=== PATIENT | male | born 1995 ===

== ENCOUNTER 2017-08-13 03:34 | Emergency (ER) | payer OTHER ==
[2017-08-13 03:44] VITALS: BP 134/90; PULSE 78; RESP 18; TEMP 97.7; O2SAT 95
[2017-08-13] MEDS ORDERED: Promethazine/Cod 6.25mg-10mg/5ml Syr UD PO STA (04:20)
[2017-08-13] MEDS ORDERED: Albuterol-Ipratrop 3 mg / 0.5 (3 ml) UD INH STA ×2 (04:20)
[2017-08-13] MEDS ORDERED: Promethazine/Cod 6.25mg-10mg/5ml Syr UD ONE (04:28)
[2017-08-13] MEDS ORDERED: Albuterol-Ipratrop 3 mg / 0.5 (3 ml) UD ONE (04:29)
--- NOTE | 2017-08-13 05:05 | ED PDOC ---
HPI: CCC, URI, Sore Throat Time Seen by Provider: 08/13/17 03:50 Chief Complaint (Nursing): Cough, Cold, Congestion Chief Complaint (Provider): Cough History Per: Patient History/Exam Limitations: no limitations Onset/Duration Of Symptoms: Days (3) Current Symptoms Are (Timing): Still Present Sick Contacts (Context): None Associated Symptoms: Cough, Other (+ wheezing). denies: Fever, Chills, Sore Throat, Sputum, Neck Pain, Sinus Drainage, Myalgias, Nasal Congestion, Nausea, Vomiting, Diarrhea Additional History Per: Patient Additional Complaint(s): 21 y/o male with hx asthma here this morning complaining of worsening nonproductive cough x3 days, and worsening wheezing and chest tightness. Patient has been using his MDI at home. Tonight, he was unable to sleep due to cough, which prompted him to come here. Past Medical History Vital Signs: Last Vital Signs Temp 97.7 F 08/13/17 03:41 Pulse 78 08/13/17 03:41 Resp 18 08/13/17 03:41 BP 134/90 08/13/17 03:41 Pulse Ox 95 08/13/17 05:23 - Medical History PMH: Asthma - Surgical History Surgical History: No Surg Hx - Family History Family History: States: Unknown Family Hx - Social History Current smoker - smoking cessation education provided: No Alcohol: None Drugs: Denies - Home Medications Home Medications: Ambulatory Orders Medication Instructions Recorded Montelukast [Singulair] 1 tab PO DAILY 12/20/15 Cetirizine HCl [Zyrtec] 1 tab PO HS 08/31/16 Albuterol 0.5% [Albuterol 0.5% 2.5 mg IH Q6 PRN #1 packet 08/13/17 Inhal Sabina (2.5 mg/0.5 ml) UD] Albuterol HFA [Ventolin HFA 90 1 - 2 puff IH Q6 PRN #1 inhaler 08/13/17 mcg/actuation (8 g)] Benzonatate [Tessalon Perle] 100 mg PO TID PRN #15 capsule 08/13/17 Nebulizer [Compact Compressor 1 dev XX PRN PRN #1 dev 08/13/17 Nebulizer] predniSONE [predniSONE Tab] 60 mg PO QAM #12 tab 08/13/17 - Allergies Allergies/Adverse Reactions: Allergies Allergy/AdvReac Type Severity Reaction Status Date / Time EGG Allergy RASH Verified 08/31/16 21:30 shrimp Allergy ANGIOEDEMA Verified 08/13/17 03:42 Review of Systems ROS Statement: Except As Marked, All Systems Reviewed And Found Negative Respiratory: Positive for: Cough, Wheezing Physical Exam - Reviewed Nursing Documentation Reviewed: Yes Vital Signs Reviewed: Yes - Physical Exam Appears: Positive for: Well, Non-toxic, No Acute Distress Head Exam: Positive for: ATRAUMATIC, NORMAL INSPECTION, NORMOCEPHALIC Skin: Positive for: Normal Color, Warm, DRY Eye Exam: Positive for: EOMI, Normal appearance, PERRL ENT: Positive for: Normal ENT Inspection Neck: Positive for: Normal, Painless ROM Cardiovascular/Chest: Positive for: Regular Rate, Rhythm Respiratory: Positive for: Wheezing (diffuse, expiratory), Respiratory Distress. Negative for: Normal Breath Sounds, Crackles, Rales, Rhonchi, Stridor Gastrointestinal/Abdominal: Positive for: Normal Exam, Bowel Sounds, Soft Back: Positive for: Normal Inspection Extremity: Positive for: Normal ROM Neurologic/Psych: Positive for: Alert, Oriented - ECG O2 Sat by Pulse Oximetry: 95 (RA) Pulse Ox Interpretation: Normal Medical Decision Making Medical Decision Making: Impression: 21 y/o male with acute asthma exacerbation Plan: - Duo Neb x2 - Prednisone - Promethazine with Codeine On reevaluation the patient has improved and is comfortable going home. He is medically stable. All questions answered. Patient discharged. Scribe Attestation Documented by Di Sanabria acting as a scribe for Jose Wellington MD. Provider Attestation All medical record entries made by the Scribe were at my direction and personally dictated by me. I have reviewed the chart and agree that the record accurately reflects my personal performance of the history, physical exam, medical decision making, and the department course for this patient. I have also personally directed, reviewed, and agree with the discharge instructions and disposition. Disposition - Clinical Impression Clinical Impression: Asthma exacerbation - Patient ED Disposition Is Patient to be Admitted: No Doctor Will See Patient In The: Office Counseled Patient/Family Regarding: Diagnosis, Need For Followup - Disposition Disposition: Routine/Home Disposition Time: 05:23 Condition: STABLE Prescriptions: Albuterol 0.5% [Albuterol 0.5% Inhal Sabina (2.5 mg/0.5 ml) UD] 2.5 mg IH Q6 PRN # 1 packet PRN Reason: Shortness Of Breath Albuterol HFA [Ventolin HFA 90 mcg/actuation (8 g)] 1 - 2 puff IH Q6 PRN #1 inhaler PRN Reason: Shortness Of Breath, Wheezing Benzonatate [Tessalon Perle] 100 mg PO TID PRN #15 capsule PRN Reason: Cough Nebulizer [Compact Compressor Nebulizer] 1 dev XX PRN PRN #1 dev PRN Reason: Shortness Of Breath predniSONE [predniSONE Tab] 60 mg PO QAM #12 tab Instructions: Asthma in Adults Forms: [facility] (Monegasque)
== END 2017-08-13 04:24 | disposition home or self-care (01) ==
LOC: H.ER 03:34
DX: J45.901 Unspecified asthma with (acute) exacerbation (principal)

== ENCOUNTER 2017-10-08 17:31 | Emergency (ER) | payer OTHER ==
[2017-10-08 17:39] VITALS: BMI 29.0
[2017-10-08] MEDS ORDERED: Albuterol-Ipratrop 3 mg / 0.5 (3 ml) UD IH STA ×3 (17:51→17:52)
[2017-10-08 18:02] VITALS: RESP 26
--- NOTE | 2017-10-08 18:43 | ED PDOC ---
HPI: SOB/CHF/COPD Time Seen by Provider: 10/08/17 17:47 Chief Complaint (Nursing): Shortness Of Breath Additional Complaint(s): 22 y/o M c PMHx cough and dyspnea similar to previous asthma exacerbations x 4 days. Patient reports small amount of sputum. Denies fever, chest pain, vomiting , leg swelling. Never intubated or admitted. Past Medical History Vital Signs: Last Vital Signs Temp Pulse Resp 26 H 10/08/17 18:01 BP Pulse Ox - Medical History PMH: Asthma - Family History Family History: States: Unknown Family Hx - Home Medications Home Medications: Ambulatory Orders Medication Instructions Recorded Montelukast [Singulair] 1 tab PO DAILY 12/20/15 Cetirizine HCl [Zyrtec] 1 tab PO HS 08/31/16 Albuterol 0.5% [Albuterol 0.5% 2.5 mg IH Q6 PRN #1 packet 08/13/17 Inhal Sabina (2.5 mg/0.5 ml) UD] Albuterol HFA [Ventolin HFA 90 1 - 2 puff IH Q6 PRN #1 inhaler 08/13/17 mcg/actuation (8 g)] Benzonatate [Tessalon Perle] 100 mg PO TID PRN #15 capsule 08/13/17 Nebulizer [Compact Compressor 1 dev XX PRN PRN #1 dev 08/13/17 Nebulizer] predniSONE [predniSONE Tab] 60 mg PO QAM #12 tab 08/13/17 Albuterol 0.083% [Albuterol 3 ml IH Q4 #150 neb 10/08/17 Sulfate 3 Ml] Albuterol HFA [Ventolin HFA 90 2 puff IH Q6 #1 inhaler 10/08/17 mcg/actuation (8 g)] Benzonatate [Tessalon Perles] 200 mg PO TID #30 sgl 10/08/17 Prednisone [Deltasone] 3 tab PO DAILY #12 tablet 10/08/17 - Allergies Allergies/Adverse Reactions: Allergies Allergy/AdvReac Type Severity Reaction Status Date / Time EGG Allergy RASH Verified 08/31/16 21:30 shrimp Allergy ANGIOEDEMA Verified 08/13/17 03:42 Review of Systems ROS Statement: Except As Marked, All Systems Reviewed And Found Negative Constitutional: Negative for: Fever Gastrointestinal: Negative for: Vomiting Physical Exam - Physical Exam Comments: Gen: NAD Head: NC Eyes: No icterus ENT: MMM Neck: Supple Chest: no retractions CV: regular rate Lungs: Wheezing diffusely Abd: Soft, NT Ext: No swelling Neuro: Alert, no focal deficit Skin: No rash Medical Decision Making Medical Decision Makin duonebs and steroids, patient feels better, wheezing much improved, good air movement. CXR no consolidation or infiltrate. Patient feels comfortable to go home. Instructed to return for worsening breathing, requiring albuterol more than every 4 hours. Disposition - Clinical Impression Clinical Impression: Asthma exacerbation - Patient ED Disposition Is Patient to be Admitted: No - Disposition Disposition: Routine/Home Disposition Time: 18:41 Condition: STABLE Prescriptions: Albuterol 0.083% [Albuterol Sulfate 3 Ml] 3 ml IH Q4 #150 neb Albuterol HFA [Ventolin HFA 90 mcg/actuation (8 g)] 2 puff IH Q6 #1 inhaler Benzonatate [Tessalon Perles] 200 mg PO TID #30 sgl Prednisone [Deltasone] 3 tab PO DAILY #12 tablet Instructions: Asthma in Adults
--- NOTE | 2017-10-09 07:34 | RAD ---
HISTORY: cough COMPARISON: Chest radiographs 12/20/2015. TECHNIQUE: Chest PA and lateral FINDINGS: LUNGS: No active pulmonary disease. PLEURA: No significant pleural effusion identified. No pneumothorax apparent. CARDIOVASCULAR: Normal. OSSEOUS STRUCTURES: No significant abnormalities. VISUALIZED UPPER ABDOMEN: Normal. OTHER FINDINGS: None. IMPRESSION: No interval acute cardiopulmonary disease appreciated.
== END 2017-10-08 19:00 | disposition short-term general hospital (02) ==
LOC: H.ER 17:31
DX: J45.901 Unspecified asthma with (acute) exacerbation (principal)

== ENCOUNTER 2017-10-09 02:36 | Observation (INO) | payer OTHER, SELFPAY ==
[2017-10-09 02:36] VITALS: BMI 29.0
[2017-10-09] MEDS ORDERED: Magnesium Sulfate 2 GM in Sodium Chloride 0.9% 100 ML IV STA (03:10)
[2017-10-09] MEDS ORDERED: Albuterol-Ipratrop 3 mg / 0.5 (3 ml) UD INH STA (03:10)
--- NOTE | 2017-10-09 03:16 | ED PDOC ---
HPI: SOB/CHF/COPD Time Seen by Provider: 10/09/17 02:49 Chief Complaint (Nursing): Shortness Of Breath Chief Complaint (Provider): Shortness of Breath History Per: Patient History/Exam Limitations: no limitations Onset/Duration Of Symptoms: Hrs (x24) Current Symptoms Are (Timing): Still Present Initiating Event: Upper Respiratory Illness Current Respiratory Medications: See Home Med List Associated Symptoms: Fever Recently: Seen In ED Additional Complaint(s): 22 year old male presents to ED with complaints of SOB x24 hours and has a past medical history of asthma. Patient was seen in ED yesterday for the same complaint and was treated with duonebs and prednisone prior to discharge. Patient states he was unable to fill his prescriptions and that his symptoms became very acute within the last few hours, prompting ED arrival. Patient notes using nebulizer with no improvement. (+) rhinorrhea, cough, and fever. PCP: None Past Medical History Reviewed: Historical Data, Nursing Documentation, Vital Signs Vital Signs: Last Vital Signs Temp 99.5 F 10/09/17 02:41 Pulse 112 H 10/09/17 03:26 Resp 20 10/09/17 02:41 BP 146/82 10/09/17 02:41 Pulse Ox 92 L 10/09/17 03:26 - Medical History PMH: Asthma - Surgical History Surgical History: No Surg Hx - Family History Family History: States: Unknown Family Hx - Social History Current smoker - smoking cessation education provided: No - Home Medications Home Medications: Ambulatory Orders Medication Instructions Recorded Montelukast [Singulair] 1 tab PO DAILY 12/20/15 Cetirizine HCl [Zyrtec] 1 tab PO HS 08/31/16 Albuterol 0.5% [Albuterol 0.5% 2.5 mg IH Q6 PRN #1 packet 08/13/17 Inhal Sabina (2.5 mg/0.5 ml) UD] Albuterol HFA [Ventolin HFA 90 1 - 2 puff IH Q6 PRN #1 inhaler 08/13/17 mcg/actuation (8 g)] Benzonatate [Tessalon Perle] 100 mg PO TID PRN #15 capsule 08/13/17 Nebulizer [Compact Compressor 1 dev XX PRN PRN #1 dev 08/13/17 Nebulizer] predniSONE [predniSONE Tab] 60 mg PO QAM #12 tab 08/13/17 Albuterol 0.083% [Albuterol 3 ml IH Q4 #150 neb 10/08/17 Sulfate 3 Ml] Albuterol HFA [Ventolin HFA 90 2 puff IH Q6 #1 inhaler 10/08/17 mcg/actuation (8 g)] Benzonatate [Tessalon Perles] 200 mg PO TID #30 sgl 10/08/17 Prednisone [Deltasone] 3 tab PO DAILY #12 tablet 10/08/17 Montelukast [Singulair] 10 mg PO QAM #14 tab 10/09/17 - Allergies Allergies/Adverse Reactions: Allergies Allergy/AdvReac Type Severity Reaction Status Date / Time EGG Allergy RASH Verified 08/31/16 21:30 shrimp Allergy ANGIOEDEMA Verified 08/13/17 03:42 Curb-65 Severity Score - CURB-65 Severity Score Confusion: No Respiratory Rate greater than/equal to 30: No Systolic BP <90 or Diastolic BP less than/equal 60mmHg: No Age >64: No Curb-65 Score: 0 Percentage 30-day mortality: 0.6% Wells Criteria for PE - Wells Criteria for Pulmonary Embolism Clinical Signs and Symptoms of DVT: No P.E is #1 Diagnosis, or Equally Likely: No Heart Rate >100: Yes Immobilization at least 3 days;Surgery previous 4 weeks: No Previous, objectively diagnosed PE or DVT: No Malignancy w/treatment within 6 months, or palliative: No Total Score: 1.5 Review of Systems ROS Statement: Except As Marked, All Systems Reviewed And Found Negative Constitutional: Positive for: Fever ENT: Positive for: Nose Discharge (rhinorrhea) Respiratory: Positive for: Cough, Shortness of Breath Physical Exam - Reviewed Nursing Documentation Reviewed: Yes Vital Signs Reviewed: Yes - Physical Exam Appears: Positive for: Non-toxic Skin: Positive for: Normal Color, Warm, Dry Eye Exam: Positive for: Normal appearance, EOMI, PERRL ENT: Positive for: Normal ENT Inspection Cardiovascular/Chest: Positive for: Regular Rate, Rhythm, Tachycardia Respiratory: Positive for: Decreased Breath Sounds (decreased air entry bilaterally), Rhonchi (expiratory rhonchi diffusely), Wheezing (expiratory wheeze diffusely), Respiratory Distress (mild). Negative for: Normal Breath Sounds Gastrointestinal/Abdominal: Positive for: Normal Exam, Soft. Negative for: Tenderness Extremity: Positive for: Normal ROM. Negative for: Deformity Neurologic/Psych: Positive for: Alert, Oriented. Negative for: Motor/Sensory Deficits - ECG ECG: Positive for: Interpreted By Me, Viewed By Me ECG Rhythm: Positive for: Sinus Tachycardia Rate: 112 (taken at 02:40 10/09/2017) O2 Sat by Pulse Oximetry: 92 (RA) Pulse Ox Interpretation: Abnormal - Critical Care Total Time (In Min): 30 Medical Decision Making Medical Decision Makin Initial impression: acute asthma exacerbation and mild respiratory distress Initial plan: * EKG * Duonebs 9mL INH * Magnesium Sulfate IV * Solumedrol 125mg IVP * Peak flow pre/post Tx * Re-eval 0430 Upon re-evaluation patient reports minimal improvement in symptoms. Discussed case with Dr. Darden who accepts patient under his care (OBS MED/SURG). ~ Scribe Attestation: Documented by Ava Echeverria, acting as a scribe for Jose Wellington MD. Provider Scribe Attestation: All medical record entries made by the Scribe were at my direction and personally dictated by me. I have reviewed the chart and agree that the record accurately reflects my personal performance of the history, physical exam, medical decision making, and the department course for this patient. I have also personally directed, reviewed, and agree with the discharge instructions and disposition. Disposition - Clinical Impression Clinical Impression: Asthma exacerbation - Patient ED Disposition Is Patient to be Admitted: Yes - Disposition Disposition Time: 04:30 Condition: FAIR Prescriptions: Montelukast [Singulair] 10 mg PO QAM #14 tab Instructions: Asthma in Adults Forms: [facility] (French) - Pt Status Changed To: Hospital Disposition Of: Observation (OBS MED/SURG)
[2017-10-09] MEDS ORDERED: Promethazine 12.5 mg/10 ml Syrup PO STA (04:26)
[2017-10-09] MEDS ORDERED: Promethazine 6.25 MG/5 ML CUP ONE (05:10)
--- NOTE | 2017-10-09 05:21 | CP.PCM.HP ---
History of Present Illness - History of Present Illness History of Present Illness: PMD: None Chief complaint: SOB The patient was seen and examined in the ED HPI: 22 years old male with hx of Asthma, has been having daily mild attacks relieved with his Inhaler. He was seen at the ED on 10/08/17 because of SOB and wheezing not responding to his Home medications. He was treated and discharged. He now returns to the ED a few hours later, referring that the severe SOB and wheezing had returned. He referred mild productive cough and Palpitation, No fever nor chest pain. In the ED he received Albuterol Nebulizer , Methylprednisolone and Magnesium with little improvement. PMH: Bronchial Asthma PSH: Denies SH: No illegal drug use; No Cigarettes; Occasional alcohol, Live with family, He smokes [place]ah FH: States: Unknown Family Hx Allergies: NKDA Egg; Shrimp; Dogs; Cats Medication: Reviewed - Present on Admission - Present on Admission Any Indicators Present on Admission: No History of DVT/PE: No History of Uncontrolled Diabetes: No Urinary Catheter: No Decubitus Ulcer Present: No Review of Systems - Constitutional Constitutional: absent: Anorexia, Chills, Fatigue, Fever, Headache - EENT Eyes: absent: Diplopia, Floaters, Requires Corrective Lenses, Sees Flashes Ears: absent: Decreased Hearing, Ear Discharge, Ear Pain, Tinnitus Nose/Mouth/Throat: absent: Epistaxis, Nasal Congestion, Nasal Obstruction, Nasal Trauma - Cardiovascular Cardiovascular: Dyspnea. absent: Chest Pain, Edema - Respiratory Respiratory: Cough, Dyspnea, Wheezing. absent: Stridor - Gastrointestinal Gastrointestinal: absent: Abdominal Pain, Constipation, Diarrhea, Nausea, Vomiting - Genitourinary Genitourinary: absent: Dysuria, Flank Pain, Hematuria, Urinary Frequency - Musculoskeletal Musculoskeletal: absent: Back Pain, Muscle Cramps, Muscle Weakness - Integumentary Integumentary: absent: Pruritus, Rash, Skin Ulcer, Sores, Striae, Swelling - Neurological Neurological: absent: Confusion, Dizziness, Focal Weakness, Weakness - Psychiatric Psychiatric: absent: Anxiety, Confusion, Depression, Irritability, Panic Attacks - Endocrine Endocrine: absent: Palpitations, Polydipsia, Polyphagia, Polyuria - Hematologic/Lymphatic Hematologic: absent: Easy Bleeding, Easy Bruising Past Patient History - Past Social History Smoking Status: Never Smoked Chewing Tobacco Use: No Cigar Use: No Alcohol: Occasional Drugs: Denies Home Situation {Lives}: With Family - CARDIAC Hx Cardiac Disorders: No - PULMONARY Hx Asthma: Yes - NEUROLOGICAL Hx Neurological Disorder: No - HEENT Hx HEENT Problems: No - RENAL Hx Chronic Kidney Disease: No - ENDOCRINE/METABOLIC Hx Endocrine Disorders: No - HEMATOLOGICAL/ONCOLOGICAL Hx Blood Disorders: No - INTEGUMENTARY Hx Dermatological Problems: No - MUSCULOSKELETAL/RHEUMATOLOGICAL Hx Musculoskeletal Disorders: No - GASTROINTESTINAL Hx Gastrointestinal Disorders: No - GENITOURINARY/GYNECOLOGICAL Hx Genitourinary Disorders: No - PSYCHIATRIC Hx Psychophysiologic Disorder: No Hx Substance Use: No - SURGICAL HISTORY Hx Surgeries: No - ANESTHESIA Hx Anesthesia: No Meds Home Medications: Home Medication List Medication Instructions Recorded Confirmed Type Montelukast [Singulair] 10 mg PO QAM #14 tab 10/09/17 Rx Allergies/Adverse Reactions: Allergies Allergy/AdvReac Type Severity Reaction Status Date / Time EGG Allergy RASH Verified 08/31/16 21:30 shrimp Allergy ANGIOEDEMA Verified 08/13/17 03:42 Physical Exam - Constitutional Appears: In Acute Distress - Head Exam Head Exam: ATRAUMATIC, NORMAL INSPECTION, NORMOCEPHALIC - Eye Exam Eye Exam: EOMI, Normal appearance Pupil Exam: NORMAL ACCOMODATION, PERRL - ENT Exam ENT Exam: Mucous Membranes Moist, Normal Exam - Neck Exam Neck exam: Positive for: Full Rom, Normal Inspection. Negative for: Lymphadenopathy, Tenderness - Respiratory Exam Respiratory Exam: Decreased Breath Sounds, Prolonged Expiratory Phase, Rhonchi, Wheezes. absent: Rales - Cardiovascular Exam Cardiovascular Exam: Tachycardia, +S1, +S2. absent: Gallop - GI/Abdominal Exam GI & Abdominal Exam: Normal Bowel Sounds, Soft. absent: Mass, Organomegaly, Tenderness - Rectal Exam Rectal Exam: Deferred - Extremities Exam Extremities exam: Positive for: full ROM, normal inspection. Negative for: calf tenderness, pedal edema, tenderness - Back Exam Back exam: NORMAL INSPECTION. absent: CVA tenderness (L), CVA tenderness (R) - Neurological Exam Neurological exam: Alert, CN II-XII Intact, Oriented x3, Reflexes Normal - Psychiatric Exam Psychiatric exam: Normal Affect, Normal Mood - Skin Skin Exam: Dry, Intact, Normal Color, Warm Results - Vital Signs Recent Vital Signs: Last Vital Signs Temp 98.2 F 10/09/17 04:46 Pulse 121 H 10/09/17 04:46 Resp 24 10/09/17 04:46 BP 134/58 L 10/09/17 04:46 Pulse Ox 93 L 10/09/17 04:46 - Imaging and Cardiology Chest x-ray Status: Image reviewed by me Additional comment: No infiltrate No active disease Assessment & Plan - Assessment and Plan (Free Text) Assessment: #. Asthma Plan: 22 years old male with hx of Asthma, has been having daily mild attacks relieved with his Inhaler. Comes with worsening SOB and wheezing. He was here at the ED a few hours prior for the same,treated and discharged but deteriorated in his breathing at home. #. Status Asthmaticus. The patient received Two treatment of Albuterol, Methylprednisone and Magnesium in the ED withno significant relief. - Consult Dr Armijo vehicle dynamics engineer - Methylprednisolone 60mg IVP Q6h and taper - Albuterol nebulizer Q4H and Q2H prn - Mucinex #. DVT Prophylaxis with Lovenox #. Code Status: Full - Date & Time Date: 10/09/17 Time: 05:21
[2017-10-09] MEDS ORDERED: Albuterol 0.083% Inhal Sol (2.5 mg/3 mL) UD INH PRN (05:39)
[2017-10-09 06:53] LABS: BASO % 0.1 % (0.0-2.0); EOS % 0.1 % (0.0-4.0); HEMOGLOBIN 15.2 g/dL (12.0-18.0); LYMPH # 0.5 K/uL (1.0-4.3); LYMPH % 2.9 % (20.0-40.0); MEAN CELL VOLUME 84.1 fl (80.0-94.0); MEAN CORPUSCULAR HGB CONC 34.4 g/dL (33.0-37.0); MEAN PLATELET VOLUME 6.9 fl (7.2-11.7); MONO # 0.2 K/uL (0.0-0.8); MONO % 1.1 % (0.0-10.0); NEUT # 15.2 K/uL (1.8-7.0); NEUT % 95.8 % (50.0-75.0); PLATELET COUNT 313 K/uL (130-400); RBC 5.25 Mil/uL (4.40-5.90); RED CELL DISTRIBUTION WIDTH 13.5 % (11.5-14.5); WHITE BLOOD COUNT 15.8 K/uL (4.8-10.8)
[2017-10-09 06:57] LABS: PARTIAL THROMBOPLASTIN TIME 28.6 Seconds (25.6-37.1); PROTHROMBIN TIME 11.6 Seconds (9.8-13.1)
[2017-10-09] MEDS: Albuterol 0.083% Inhal Sol (2.5 mg/3 mL) UD INH SCH ×5 (07:08→23:17)
[2017-10-09 07:12] LABS: BLOOD UREA NITROGEN 16 mg/dl (9-20); CALCIUM 9.6 mg/dL (8.4-10.2); GFR AFRICAN-AMERICAN > 60; GFR NON-AFRICAN AMERICAN > 60
[2017-10-09] MEDS ORDERED: methylPREDNISolone 60 MG in Sodium Chloride 0.9% 50 ML IVPB SCH (08:00)
[2017-10-09] MEDS: guaiFENesin 600 mg ER Tab PO SCH (08:20)
--- NOTE | 2017-10-09 08:51 | CARD ---
APPROVED REPORT EKG Measurement Heart [id number] <Conclusion> Normal sinus rhythm Normal ECG
[2017-10-09] MEDS ORDERED: Pneumococcal 23-Valent Vaccine IM ONE (09:00)
[2017-10-09 09:14] VITALS: RESP 20
[2017-10-09 12:10] LABS: LYMPHOCYTE 5 % (20-50); MONOCYTE 2 % (0-10); NEUTROPHIL 93 % (42-75); PLATELET ESTIMATE NORMAL (NORMAL); TOTAL CELLS COUNTED 100
[2017-10-09] MEDS: Enoxaparin 40 mg Syringe SC SCH (13:04)
--- NOTE | 2017-10-09 14:28 | CP.PCM.CON ---
History of Present Illness - History of Present Illness History of Present Illness: Pulmonary consult for a 22 y/o M, PMH: Asthma, came to ER [facility], [place] to be evaluated for SOB for about a week, increased from day [employer], not responding to respiratory treatments. Pt c/o of severe SOB associated to wheezing, intermittent cough with productive scant yellowish phlegms, increased on DOA. Also, Pt was seen day [employer], on in the ER for Asthma Exacerbation, Tx with Duoneb and Prednisone, after being discharged he was unable to fill his prescription for cough medicine, but he used the Nebulizer at home with no relief. Patient returned to ER [facility] today 10-09-17 treated with Solu Medrol , Albuterol neb , Mg sulfate with no improvement and was AD Worsening symptoms: JADE. Low O2 sat(92%). Aggravated factor: Non in compliance with cough medication. CXR from 10/08/17 shows: No active pulmonary disease. EKG: Normal sinus rhythm. Review of Systems - Constitutional Constitutional: Other (negative) - EENT Eyes: Other (negative) Ears: Other (negative) Nose/Mouth/Throat: Nasal Congestion - Cardiovascular Cardiovascular: Other (negative) - Respiratory Respiratory: Cough, Dyspnea, Dyspnea on Exertion, Wheezing, Change in Mucous Color - Gastrointestinal Gastrointestinal: Other (negative) - Genitourinary Genitourinary: Other (negative) - Musculoskeletal Musculoskeletal: Other (negative) - Integumentary Integumentary: Other (negative) - Neurological Neurological: Other (negative) - Psychiatric Psychiatric: Other (negative) - Endocrine Endocrine: Other (negative) - Hematologic/Lymphatic Hematologic: Other (negative) Past Patient History - Past Medical History & Family History Past Medical History?: Yes Pertinent Family History: Unknown - Past Social History Smoking Status: Never Smoked Chewing Tobacco Use: No Cigar Use: No Alcohol: Occasional Drugs: Denies Home Situation {Lives}: With Family - CARDIAC Hx Cardiac Disorders: No - PULMONARY Hx Respiratory Disorders: Yes Hx Asthma: Yes - NEUROLOGICAL Hx Neurological Disorder: No - HEENT Hx HEENT Problems: No - RENAL Hx Chronic Kidney Disease: No - ENDOCRINE/METABOLIC Hx Endocrine Disorders: No - HEMATOLOGICAL/ONCOLOGICAL Hx Blood Disorders: No - INTEGUMENTARY Hx Dermatological Problems: No - MUSCULOSKELETAL/RHEUMATOLOGICAL Hx Musculoskeletal Disorders: No - GASTROINTESTINAL Hx Gastrointestinal Disorders: No - GENITOURINARY/GYNECOLOGICAL Hx Genitourinary Disorders: No - PSYCHIATRIC Hx Psychophysiologic Disorder: No Hx Substance Use: No - SURGICAL HISTORY Hx Surgeries: No - ANESTHESIA Hx Anesthesia: No Meds Home Medications: Home Medication List Medication Instructions Recorded Confirmed Type Montelukast [Singulair] 10 mg PO QAM #14 tab 10/09/17 Rx Allergies/Adverse Reactions: Allergies Allergy/AdvReac Type Severity Reaction Status Date / Time EGG Allergy RASH Verified 08/31/16 21:30 shrimp Allergy ANGIOEDEMA Verified 08/13/17 03:42 - Medications Medications: Current Medications Albuterol Sulfate (Albuterol 0.083% Inhal Sabina (2.5 Mg/3 Ml) Ud) 2.5 mg INH RQ4 [facility] Last Admin: 10/09/17 11:44 Dose: 2.5 mg Albuterol Sulfate (Albuterol 0.083% Inhal Sabina (2.5 Mg/3 Ml) Ud) 2.5 mg INH RQ2 PRN PRN Reason: Shortness of Breath Enoxaparin Sodium (Lovenox) 40 mg SC DAILY [facility] PRN Reason: Protocol Last Admin: 10/09/17 13:04 Dose: 40 mg Fluticasone Propionate (Flonase) 1 spr MACK BID [facility] Last Admin: 10/09/17 08:19 Dose: 1 spr Guaifenesin (Mucinex La) 600 mg PO Q12 [facility] Last Admin: 10/09/17 08:20 Dose: 600 mg Methylprednisolone (Solu-Medrol) 60 mg IV Q6H [facility] Last Admin: 10/09/17 13:03 Dose: 60 mg Physical Exam - Constitutional Appears: No Acute Distress - Head Exam Head Exam: NORMAL INSPECTION - Eye Exam Eye Exam: PERRL - ENT Exam ENT Exam: Mucous Membranes Moist (nasal congestion) - Neck Exam Neck exam: Positive for: Normal Inspection - Respiratory Exam Respiratory Exam: Decreased Breath Sounds (b/l), Wheezes (expiratory) - Cardiovascular Exam Cardiovascular Exam: REGULAR RHYTHM - GI/Abdominal Exam GI & Abdominal Exam: Normal Bowel Sounds, Soft - Extremities Exam Extremities exam: Positive for: normal inspection - Back Exam Back exam: NORMAL INSPECTION - Neurological Exam Neurological exam: Alert, Oriented x3 Additional comments: No motor/sensory deficit. - Psychiatric Exam Psychiatric exam: Normal Mood - Skin Skin Exam: Normal Color, Warm Results - Vital Signs Recent Vital Signs: Last Vital Signs Temp 98.8 F 10/09/17 09:00 Pulse 105 H 10/09/17 09:00 Resp 20 10/09/17 09:00 BP 122/72 10/09/17 09:00 Pulse Ox 94 L 10/09/17 09:00 reviewed Kobe - Labs Result Diagrams: 10/09/17 06:10 10/09/17 06:10 Labs: Laboratory Results - last 24 hr 10/09/17 10/09/17 10/09/17 06:10 06:10 06:10 WBC 15.8 H D RBC 5.25 Hgb 15.2 Hct 44.2 MCV 84.1 MCH 29.0 MCHC 34.4 RDW 13.5 Plt Count 313 MPV 6.9 L Neut % (Auto) 95.8 H Lymph % (Auto) 2.9 L Weber % (Auto) 1.1 Eos % (Auto) 0.1 Baso % (Auto) 0.1 Neut # (Auto) 15.2 H Lymph # (Auto) 0.5 L Weber # (Auto) 0.2 Eos # (Auto) 0.0 Baso # (Auto) 0.0 Neutrophils % (Manual) 93 H Lymphocytes % (Manual) 5 L Monocytes % (Manual) 2 Platelet Estimate Normal RBC Morphology Normal PT 11.6 INR 1.0 APTT 28.6 Sodium 144 Potassium 4.1 Chloride 103 Carbon Dioxide 23 Anion Gap 22 H BUN 16 Creatinine 0.8 Est GFR ( Amer) > 60 Est GFR (Non-Af Amer) > 60 Random Glucose 174 H Calcium 9.6 reviewed J.P. - EKG Data EKG comments: reviewed J.P. - Imaging and Cardiology Chest x-ray Status: Report reviewed by me (Kobe) Assessment & Plan (1) Asthma exacerbation Status: Acute Priority: High - Assessment and Plan (Free Text) Plan: Agree with plan management, add Advair 50/500, continue SoluMedrol , Albuterol neb , Mucinex and rest of Tx. - Date & Time Date: 10/09/17 Time: 13:30
[2017-10-09] MEDS: Fluticasone-Salmeterol 500-50mcg Diskus IH SCH (20:23)
[2017-10-10] MEDS: guaiFENesin 600 mg ER Tab PO SCH ×2 (01:27→08:45)
[2017-10-10] MEDS: Albuterol 0.083% Inhal Sol (2.5 mg/3 mL) UD INH SCH ×3 (04:25→11:57)
[2017-10-10 06:14] LABS: HEMOGLOBIN 14.8 g/dL (12.0-18.0); MEAN CELL VOLUME 84.9 fl (80.0-94.0); MEAN CORPUSCULAR HEMOGLOBIN 28.1 pg (27.0-31.0); MEAN CORPUSCULAR HGB CONC 33.1 g/dL (33.0-37.0); RBC 5.26 Mil/uL (4.40-5.90); RED CELL DISTRIBUTION WIDTH 13.6 % (11.5-14.5); WHITE BLOOD COUNT 17.8 K/uL (4.8-10.8)
[2017-10-10 06:34] LABS: BLOOD UREA NITROGEN 23 mg/dl (9-20); GFR AFRICAN-AMERICAN > 60; GFR NON-AFRICAN AMERICAN > 60
[2017-10-10 06:35] LABS: CALCIUM 9.4 mg/dL (8.4-10.2)
[2017-10-10 08:22] VITALS: BP 128/72; PULSE 97; TEMP 97.2; O2SAT 94
[2017-10-10] MEDS: Fluticasone-Salmeterol 500-50mcg Diskus IH SCH (08:44)
[2017-10-10] MEDS: Enoxaparin 40 mg Syringe SC SCH (08:45)
--- NOTE | 2017-10-10 11:41 | CP.PCM.DIS ---
Provider - Provider Date of Admission: 10/09/17 04:33 Attending physician: Jean Marie Darden Time Spent in preparation of Discharge (in minutes): 30 Hospital Course - Lab Results Lab Results: Most Recent Lab Values WBC 17.8 K/uL (4.8-10.8) H 10/10/17 05:30 RBC 5.26 Mil/uL (4.40-5.90) 10/10/17 05:30 Hgb 14.8 g/dL (12.0-18.0) 10/10/17 05:30 Hct 44.7 % (35.0-51.0) 10/10/17 05:30 MCV 84.9 fl (80.0-94.0) 10/10/17 05:30 MCH 28.1 pg (27.0-31.0) 10/10/17 05:30 MCHC 33.1 g/dL (33.0-37.0) 10/10/17 05:30 RDW 13.6 % (11.5-14.5) 10/10/17 05:30 Plt Count 309 K/uL (130-400) 10/10/17 05:30 MPV 6.9 fl (7.2-11.7) L 10/09/17 06:10 Neut % (Auto) 95.8 % (50.0-75.0) H 10/09/17 06:10 Lymph % (Auto) 2.9 % (20.0-40.0) L 10/09/17 06:10 [place] % (Auto) 1.1 % (0.0-10.0) 10/09/17 06:10 Eos % (Auto) 0.1 % (0.0-4.0) 10/09/17 06:10 Baso % (Auto) 0.1 % (0.0-2.0) 10/09/17 06:10 Neut # (Auto) 15.2 K/uL (1.8-7.0) H 10/09/17 06:10 Lymph # (Auto) 0.5 K/uL (1.0-4.3) L 10/09/17 06:10 [place] # (Auto) 0.2 K/uL (0.0-0.8) 10/09/17 06:10 Eos # (Auto) 0.0 K/uL (0.0-0.7) 10/09/17 06:10 Baso # (Auto) 0.0 K/uL (0.0-0.2) 10/09/17 06:10 Neutrophils % (Manual) 93 % (42-75) H 10/09/17 06:10 Lymphocytes % (Manual) 5 % (20-50) L 10/09/17 06:10 Monocytes % (Manual) 2 % (0-10) 10/09/17 06:10 Platelet Estimate Normal (NORMAL) 10/09/17 06:10 RBC Morphology Normal (NORMAL) 10/09/17 06:10 PT 11.6 Seconds (9.8-13.1) 10/09/17 06:10 INR 1.0 (0.9-1.2) 10/09/17 06:10 APTT 28.6 Seconds (25.6-37.1) 10/09/17 06:10 Sodium 144 mmol/l (132-148) 10/10/17 05:30 Potassium 4.6 MMOL/L (3.6-5.0) 10/10/17 05:30 Chloride 102 mmol/L (98-107) 10/10/17 05:30 Carbon Dioxide 24 mmol/L (22-30) 10/10/17 05:30 Anion Gap 23 (10-20) H 10/10/17 05:30 BUN 23 mg/dl (9-20) H 10/10/17 05:30 Creatinine 0.9 mg/dl (0.8-1.5) 10/10/17 05:30 Est GFR ( Amer) > 60 10/10/17 05:30 Est GFR (Non-Af Amer) > 60 10/10/17 05:30 Random Glucose 151 mg/dL (75-110) H 10/10/17 05:30 Calcium 9.4 mg/dL (8.4-10.2) 10/10/17 05:30 Procalcitonin < 0.05 NG/ML (0.19-0.49) L 10/09/17 09:47 - Hospital Course Hospital Course: 22 years old male with hx of Asthma, has been having daily mild attacks relieved with his Inhaler. Comes with worsening SOB and wheezing. He was here at the ED a few hours prior for the same, treated and discharged but deteriorated in his breathing at home. Patient states his breathing as worsened since they got a new dog. After 2 days of bronchodilators and steroids, pt much improved and stable to be discharged home with home meds. We advised patient to continue with Advair, however pt is requesting Breo and has agreed to pay for it. No bacterial infection as procalcitonin is negative. Pt to be discharged home with PO steroids, Duonebs, as well as a script for Breo. Pt advised to follow up with PCP and Pulmonology in one week. Discharge Exam - Head Exam Head Exam: ATRAUMATIC, NORMAL INSPECTION, NORMOCEPHALIC - Eye Exam Eye Exam: EOMI, Normal appearance, PERRL - ENT Exam ENT Exam: Mucous Membranes Moist, Normal Oropharynx - Neck Exam Neck exam: Full Rom, Normal Inspection - Respiratory Exam Respiratory Exam: Clear to PA & Lateral, NORMAL BREATHING PATTERN. absent: Rhonchi, Wheezes - Cardiovascular Exam Cardiovascular Exam: RRR, +S1, +S2 - GI/Abdominal Exam GI & Abdominal Exam: Normal Bowel Sounds, Soft. absent: Mass, Tenderness - Extremities Exam Extremities exam: normal capillary refill, pedal pulses present - Back Exam Back exam: absent: CVA tenderness (L), CVA tenderness (R) - Neurological Exam Neurological exam: Alert, Oriented x3 - Psychiatric Exam Psychiatric exam: Normal Affect, Normal Mood - Skin Skin Exam: Dry, Normal Color, Warm Discharge Plan - Discharge Medications Prescriptions: Albuterol/Ipratropium [Duoneb 3 MG/3 Ml-0.5 MG/3 Ml 3 Ml] 3 ml IH Q6 #30 neb Fluticasone/Vilanterol [Breo Ellipta 100-25 Mcg INH] 1 puff IH DAILY #30 blst.w.dev Methylprednisolone [Medrol Dose Pack (21 tabs)] 4 mg PO ASDIR #21 mg - Follow Up Plan Condition: FAIR Disposition: HOME/ ROUTINE Instructions: Asthma in Adults, Asthma (DC)
== END 2017-10-10 14:42 | disposition home or self-care (01) ==
LOC: H.ER 02:36 → H.ERHOLD 04:33 → H.MEDSURG1 05:41
PROVIDERS: ADMIT Internal Medicine; ATTEND Internal Medicine
DX: J45.901 Unspecified asthma with (acute) exacerbation (principal); Z91.012 Allergy to eggs; Z91.013 Allergy to seafood; Z23 Encounter for immunization; Z91.14 Patient's other noncompliance with medication regimen
CPT/HCPCS: 36415; 80048; 84145; 85025; 85027; 85610; 85730; 90471; 90732; 93005; 94150; 94640; 96365; 96372; 96375; 96376; 99284; G0378; J1650; J2930; J3475

== ENCOUNTER 2018-08-07 19:36 | Emergency (ER) | payer MEDICAID, SELFPAY ==
[2018-08-07 19:36] VITALS: BMI 29.0
[2018-08-07 19:48] VITALS: RESP 16; O2SAT 98
[2018-08-07] MEDS ORDERED: Albuterol-Ipratrop 3 mg / 0.5 (3 ml) UD IH STA ×2 (20:04→20:37)
--- NOTE | 2018-08-07 20:10 | ED PDOC ---
HPI: SOB/CHF/COPD Time Seen by Provider: 08/07/18 19:57 Chief Complaint (Nursing): Shortness Of Breath History Per: Patient Onset/Duration Of Symptoms: Days (2) Current Symptoms Are (Timing): Still Present Exacerbating Factor(s): Coughing Current Respiratory Medications: See Home Med List Severity: Mild Associated Symptoms: denies: Fever, Productive Cough, Ankle/Leg Swelling Additional Complaint(s): SOB, wheezing, non-productive cough x 2 days. Denies fever. No improvement with albuterol at home. Past Medical History Vital Signs: Last Vital Signs Temp 98.3 F 08/07/18 19:42 Pulse 75 08/07/18 19:42 Resp 16 08/07/18 19:54 BP 125/66 08/07/18 19:42 Pulse Ox 98 08/07/18 19:54 - Medical History PMH: Asthma Denies: HIV, Chronic Kidney Disease - Family History Family History: States: Unknown Family Hx - Home Medications Home Medications: Ambulatory Orders Medication Instructions Recorded Albuterol/Ipratropium [Duoneb 3 3 ml IH Q6 #30 neb 10/10/17 MG/3 Ml-0.5 MG/3 Ml 3 Ml] Fluticasone/Vilanterol [Breo 1 puff IH DAILY #30 blst.w.dev 10/10/17 Ellipta 100-25 Mcg INH] Methylprednisolone [Medrol Dose 4 mg PO ASDIR #21 mg 10/10/17 Pack (21 tabs)] Azithromycin [Zithromax] 250 mg PO DAILY #6 tab 08/07/18 Mometasone/Formoterol [Dulera] 1 megha IH DAILY #1 megha 08/07/18 Prednisone 50 mg PO DAILY #5 tab 08/07/18 - Allergies Allergies/Adverse Reactions: Allergies Allergy/AdvReac Type Severity Reaction Status Date / Time EGG Allergy RASH Verified 08/07/18 19:42 shrimp Allergy ANGIOEDEMA Verified 08/07/18 19:42 Review of Systems ROS Statement: Except As Marked, All Systems Reviewed And Found Negative Respiratory: Positive for: Cough, Shortness of Breath, Wheezing Physical Exam - Reviewed Nursing Documentation Reviewed: Yes Vital Signs Reviewed: Yes - Physical Exam Appears: Positive for: Non-toxic, No Acute Distress Head Exam: Positive for: ATRAUMATIC, NORMAL INSPECTION, NORMOCEPHALIC Skin: Positive for: Normal Color, Warm, DRY Eye Exam: Positive for: EOMI, Normal appearance, PERRL ENT: Positive for: Normal ENT Inspection Neck: Positive for: Normal, Painless ROM Cardiovascular/Chest: Positive for: Regular Rate, Rhythm Respiratory: Positive for: Wheezing. Negative for: Rhonchi, Respiratory Distress Gastrointestinal/Abdominal: Positive for: Normal Exam, Soft Back: Positive for: Normal Inspection Extremity: Positive for: Normal ROM Neurologic/Psych: Positive for: Alert, Oriented - ECG O2 Sat by Pulse Oximetry: 98 - Progress Re-evaluation Time: 21:47 Condition: Improved Medical Decision Making Medical Decision Makin Chest x-ray reviewed, no active disease Disposition - Clinical Impression Clinical Impression: Asthma exacerbation - Patient ED Disposition Is Patient to be Admitted: No Counseled Patient/Family Regarding: Studies Performed, Diagnosis, Need For Followup, Rx Given - Disposition Referrals: [facility] [Outside] Disposition: Routine/Home Disposition Time: 21:48 Condition: FAIR Prescriptions: Azithromycin [Zithromax] 250 mg PO DAILY #6 tab Mometasone/Formoterol [Dulera] 1 megha IH DAILY #1 megha Prednisone 50 mg PO DAILY #5 tab Instructions: Asthma in Adults Forms: [facility] (O[place]i)
[2018-08-07] MEDS ORDERED: Albuterol-Ipratrop 3 mg / 0.5 (3 ml) UD ONE (21:29)
[2018-08-07 21:58] VITALS: BP 128/75; PULSE 82; TEMP 98
--- NOTE | 2018-08-08 10:02 | CARD ---
APPROVED REPORT Date of service: 08/07/2018 EKG Measurement Heart [id number] <Conclusion> Normal sinus rhythm Normal ECG
--- NOTE | 2018-08-08 10:38 | RAD ---
Date of service: 08/07/2018 HISTORY: cough COMPARISON: 10/08/2017 TECHNIQUE: Chest PA and lateral FINDINGS: LUNGS: No active pulmonary disease. PLEURA: No significant pleural effusion identified. No pneumothorax apparent. CARDIOVASCULAR: No aortic atherosclerotic calcification present. Normal cardiac size. No pulmonary vascular congestion. OSSEOUS STRUCTURES: No significant abnormalities. VISUALIZED UPPER ABDOMEN: Normal. OTHER FINDINGS: None. IMPRESSION: No active disease. No interval pathology noted.
== END 2018-08-07 21:57 | disposition home or self-care (01) ==
LOC: H.ER 19:36
DX: J45.901 Unspecified asthma with (acute) exacerbation (principal)

== ENCOUNTER 2018-08-20 22:35 | Emergency (ER) | payer MEDICAID ==
[2018-08-20 22:35] VITALS: BMI 29.0
[2018-08-20 23:04] VITALS: BP 133/77; PULSE 96; RESP 18; TEMP 98.4; O2SAT 99
[2018-08-20] MEDS ORDERED: Naproxen 500 MG TAB PO STA (23:27)
--- NOTE | 2018-08-20 23:28 | ED PDOC ---
Lower Extremity Pain/Injury Time Seen by Provider: 08/20/18 23:15 Chief Complaint (Nursing): Lower Extremity Problem/Injury Chief Complaint (Provider): RIGHT KNEE History Per: Patient (22 Y/O MALE HERE FOR RIGHT KNEE INJURY THAT OCCURRED TODAY WHEN HE WAS PLAYING BASKETBALL. PATIENT NOTES SNAPPING IN RIGHT KNEE PRIOR.) Past Medical History Reviewed: Historical Data, Nursing Documentation, Vital Signs Vital Signs: Last Vital Signs Temp 98.4 F 08/20/18 23:03 Pulse 96 H 08/20/18 23:03 Resp 18 08/20/18 23:03 BP 133/77 08/20/18 23:03 Pulse Ox 99 08/20/18 23:03 - Medical History PMH: Asthma Denies: HIV, Chronic Kidney Disease - Family History Family History: States: Unknown Family Hx - Home Medications Home Medications: Ambulatory Orders Medication Instructions Recorded Albuterol/Ipratropium [Duoneb 3 3 ml IH Q6 #30 neb 10/10/17 MG/3 Ml-0.5 MG/3 Ml 3 Ml] Fluticasone/Vilanterol [Breo 1 puff IH DAILY #30 blst.w.dev 10/10/17 Ellipta 100-25 Mcg INH] Methylprednisolone [Medrol Dose 4 mg PO ASDIR #21 mg 10/10/17 Pack (21 tabs)] Azithromycin [Zithromax] 250 mg PO DAILY #6 tab 08/07/18 Mometasone/Formoterol [Dulera] 1 megha IH DAILY #1 megha 08/07/18 Prednisone 50 mg PO DAILY #5 tab 08/07/18 Naproxen 375 mg PO Q8 PRN #21 tablet 08/20/18 - Allergies Allergies/Adverse Reactions: Allergies Allergy/AdvReac Type Severity Reaction Status Date / Time EGG Allergy RASH Verified 08/07/18 19:42 shrimp Allergy ANGIOEDEMA Verified 08/07/18 19:42 Review of Systems ROS Statement: Except As Marked, All Systems Reviewed And Found Negative Physical Exam - Reviewed Nursing Documentation Reviewed: Yes Vital Signs Reviewed: Yes - Physical Exam Appears: Positive for: Well, Non-toxic, No Acute Distress Head Exam: Positive for: ATRAUMATIC, NORMAL INSPECTION, NORMOCEPHALIC Skin: Positive for: Normal Color, Warm, DRY Eye Exam: Positive for: EOMI, Normal appearance, PERRL ENT: Positive for: Normal ENT Inspection Neck: Positive for: Normal, Painless ROM Cardiovascular/Chest: Positive for: Regular Rate, Rhythm Respiratory: Positive for: CNT, Normal Breath Sounds Gastrointestinal/Abdominal: Positive for: Normal Exam, Soft Back: Positive for: Normal Inspection Extremity: Positive for: Normal ROM Neurologic/Psych: Positive for: Alert, Oriented - ECG O2 Sat by Pulse Oximetry: 99 - Progress ED Course And Treament: knee xry: no fx Placed in knee immobilizer and given crutch instructions. Disposition - Clinical Impression Clinical Impression: Right knee sprain - Patient ED Disposition Is Patient to be Admitted: No - Disposition Disposition: Routine/Home Disposition Time: 23:49 Condition: FAIR Prescriptions: Naproxen 375 mg PO Q8 PRN #21 tablet PRN Reason: Pain, Moderate (4-7) Instructions: Knee Sprain (DC) Forms: [facility] ED School/Work Excuse
[2018-08-20] MEDS ORDERED: Naproxen 500 MG TAB PO ONE (23:48)
--- NOTE | 2018-08-21 10:31 | RAD ---
Date of service: 08/20/2018 PROCEDURE: Right Knee Radiographs. HISTORY: knee injury COMPARISON: None. FINDINGS: BONES: No acute fracture or destructive bony lesion identified. JOINTS: No subluxation or dislocation identified. JOINT EFFUSION: Trace suprapatellar bursa effusion not excluded. Clothing obscures this area somewhat. OTHER FINDINGS: None. IMPRESSION: No acute fracture, dislocation or subluxation. Trace suprapatellar bursa effusion in question.
== END 2018-08-21 00:19 | disposition home or self-care (01) ==
LOC: H.ER 22:35
DX: S83.91XA Sprain of unspecified site of right knee, initial encounter (principal); X50.9XXA Other and unspecified overexertion or strenuous movements or postures, initial encounter; Y92.310 Basketball court as the place of occurrence of the external cause